=== PATIENT | male | born 1950 | race Caucasian/White ===

== ENCOUNTER → 2019-02-11 12:32 | Outpatient (CLI) | payer MEDICARE, SELFPAY ==
--- NOTE | 2019-02-11 12:36 | MRI_ITS ---
STUDY: MRI BRAIN WITHOUT CONTRAST REASON FOR EXAM: Male, 68 years old. Diplopia for 3 hours 3 weeks ago TECHNIQUE: Standardized multiplanar fat and water weighted pulse sequences were obtained. COMPARISON: None. FINDINGS: Normal size of the ventricles and extra-axial spaces for the patient's age. There are a limited number of small white matter hyperintensities, distributed throughout the deep white matter tracts of the cerebral hemispheres, consistent with mild chronic white matter ischemic changes. Normal bilateral basal ganglia. Normal thalami. There is no extra-axial fluid accumulation. Normal flow voids within the major intracranial circulation suggesting patency by spin echo criteria. Normal sella turcica, pituitary gland, infundibular stalk, optic chiasm and hypothalamus. Normal tectal plate and pineal gland. Normal midbrain, rachel and medulla. Normal cerebellum. Normal basal cisterns. Normal bilateral temporal bones. Normal bilateral internal auditory canals. No demonstrated orbital abnormality, within the constraints of a routine brain study. Normal visualized paranasal sinuses. Normal calvarium and skull base. Normal visualized soft tissue structures. Normal visualized upper cervical spine. MRI/Brain without Contrast IMPRESSION: No evidence of infarct or hemorrhage. Mild microangiopathic white matter disease. Electronically Signed: Colt Hardwick MD at 18:32 EDT Tel , Service support ,
== END ==
PROVIDERS: Family Provider Internal Medicine; PCP Internal Medicine; Referring Provider Internal Medicine; Visit Provider Internal Medicine
DX: H53.2 Diplopia (principal)
CPT/HCPCS: 70551

== ENCOUNTER 2019-04-21 14:00 | Outpatient (RCR) | payer MEDICARE, SELFPAY ==
[2016-09-06 07:12] VITALS: BMI 26.9
== END 2019-05-10 23:59 ==
LOC: DC 14:00
PROVIDERS: Family Provider Internal Medicine; PCP Internal Medicine; Visit Provider Nurse Practitioner
DX: E11.65 Type 2 diabetes mellitus with hyperglycemia (principal); Z71.3 Dietary counseling and surveillance
CPT/HCPCS: 97803; G0108

== ENCOUNTER 2019-05-21 14:00 | Outpatient (RCR) | payer MEDICARE, SELFPAY ==
[2016-09-06 07:12] VITALS: BMI 26.9
== END 2019-06-10 23:59 ==
LOC: DC 14:00
PROVIDERS: Family Provider Internal Medicine; PCP Internal Medicine; Visit Provider Nurse Practitioner
DX: E11.65 Type 2 diabetes mellitus with hyperglycemia (principal); Z71.3 Dietary counseling and surveillance
CPT/HCPCS: 97803; G0108

== ENCOUNTER 2019-06-11 13:23 | Outpatient (RCR) | payer MEDICARE, SELFPAY ==
[2016-09-06 07:12] VITALS: BMI 26.9
== END 2019-07-11 23:59 ==
LOC: DC 13:23
PROVIDERS: Family Provider Internal Medicine; PCP Internal Medicine; Visit Provider Nurse Practitioner
DX: E11.65 Type 2 diabetes mellitus with hyperglycemia (principal); Z71.3 Dietary counseling and surveillance
CPT/HCPCS: G0109

== ENCOUNTER 2019-07-20 14:05 | Outpatient (RCR) | payer MEDICARE, SELFPAY ==
[2016-09-06 07:12] VITALS: BMI 26.9
== END 2019-07-20 23:59 | disposition home or self-care (01) ==
LOC: DC 14:05
PROVIDERS: Family Provider Internal Medicine; PCP Internal Medicine; Visit Provider Nurse Practitioner
DX: E11.65 Type 2 diabetes mellitus with hyperglycemia (principal); Z71.3 Dietary counseling and surveillance
CPT/HCPCS: 97803

== ENCOUNTER → 2020-03-09 12:39 | Outpatient (CLI) | payer MEDICARE, SELFPAY ==
--- NOTE | 2020-03-09 12:43 | CDU_ITS ---
Reason For Study: Left carotid bruit Rt. Velocities/BP Lt. Velocities/BP Prox CCA 132.1/18.8 cm/sec. Prox CCA 132.1/24.3 cm/sec. Mid CCA 115.6/17 cm/sec. Mid CCA 121.1/22.5 cm/sec. Dist CCA 88.8/16.3 cm/sec. Dist CCA 110.9/22.5 cm/sec. Prox ICA 56.4/13.5 cm/sec. Prox ICA 66.7/17.6 cm/sec. Mid ICA 70.7/22.3 cm/sec. Mid ICA 81.4/22.5 cm/sec. Dist ICA 92.7/31.1 cm/sec. Dist ICA 67.9/21.2 cm/sec. Rt. ICA/CCA = 0.8. Lt. ICA/CCA = 0.7. Prox ECA 94.9/12.6 cm/sec. Prox ECA 129.3/17.6 cm/sec. Rt. Vert. 57.9/15.4 cm/sec. Lt. Vert. 44.8/10.7 cm/sec. Right Extracranial There is homogeneous, smooth atherosclerotic plaque noted in the right common carotid artery. There is intimal thickening but no significant atherosclerotic plaque noted in the right internal carotid artery. There is no significant atherosclerotic plaque noted in the right external carotid artery. Antegrade flow is noted in the right vertebral artery. Left Extracranial There is homogeneous, smooth atherosclerotic plaque noted in the left common carotid artery. There is homogeneous, smooth atherosclerotic plaque noted in the left internal carotid artery. There is no significant atherosclerotic plaque noted in the left external carotid artery. Antegrade flow is noted in the left vertebral artery. Procedure Carotid Duplex [id number]. Exam performed in department. Interpretation Summary No significant atherosclerotic plaque or stenosis noted in the right internal carotid artery. Minimal stenosis is noted in the left internal carotid artery, well less than 50% stenosis. Flow within the vertebral arteries is antegrade bilaterally. Ordering Physician: Natividad Man Referring Physician: Natividad Man Performed By: Radhika Phillips RVT
== END ==
PROVIDERS: PCP Internal Medicine; Referring Provider Internal Medicine; Visit Provider Internal Medicine
DX: R09.89 Other specified symptoms and signs involving the circulatory and respiratory systems (principal)
CPT/HCPCS: 93880

== ENCOUNTER → 2021-10-09 13:48 | Outpatient (CLI) | payer MEDICARE, SELFPAY ==
--- NOTE | 2021-10-09 13:51 | CDU_ITS ---
Reason For Study: Left Carotid Bruit Rt. Velocities/BP Lt. Velocities/BP Prox CCA 123/17 cm/sec. Prox CCA 131/23 cm/sec. Mid CCA 124/20 cm/sec. Mid CCA 124/19 cm/sec. Dist CCA 86/17 cm/sec. Dist CCA 122/29 cm/sec. Prox ICA 90/14 cm/sec. Prox ICA 111/25 cm/sec. Mid ICA 79/17 cm/sec. Mid ICA 100/25 cm/sec. Dist ICA 73/20 cm/sec. Dist ICA 82/25 cm/sec. Rt. ICA/CCA = 0.7. Lt. ICA/CCA = 0.9. Prox ECA 121/14 cm/sec. Prox ECA 124/7 cm/sec. Rt. Vert. 72/15 cm/sec. Lt. Vert. 49/9 cm/sec. Right Extracranial There is intimal thickening but no significant atherosclerotic plaque noted in the right common carotid artery. There is no significant atherosclerotic plaque noted in the right internal carotid artery. There is no significant atherosclerotic plaque noted in the right external carotid artery. Antegrade flow is noted in the right vertebral artery. Left Extracranial There is intimal thickening but no significant atherosclerotic plaque noted in the left common carotid artery. There is homogeneous, smooth atherosclerotic plaque noted in the left internal carotid artery. There is intimal thickening but no significant atherosclerotic plaque noted in the left external carotid artery. Antegrade flow is noted in the left vertebral artery. Procedure Carotid Duplex [id number]. This is a Carotid Duplex examination using B-mode, color flow and specral Doppler. Exam performed in department. VL/Carotid Duplex Ultrasound Interpretation Summary No significant atherosclerotic plaque or stenosis noted in the right internal c arotid artery. Mild (<50%) stenosis left extracranial internal carotid. Flow within the vertebral a rteries is antegrade bilaterally. Ordering Physician: Natividad Man Referring Physician: Natividad Man Performed By: Lisa Gomez, YELITZA, RVT
== END ==
PROVIDERS: PCP Internal Medicine; Referring Provider Internal Medicine; Visit Provider Internal Medicine
DX: R09.89 Other specified symptoms and signs involving the circulatory and respiratory systems (principal)
CPT/HCPCS: 93880

== ENCOUNTER 2022-01-26 13:59 | Outpatient (RCR) | payer MEDICARE, SELFPAY ==
--- NOTE | 2022-01-26 15:37 | HP.PTEVAL_ITS ---
Patient's Visit Information NADIA SALAZAR is a 71 year old M referred to Physical Therapy by Jace Emanuel PA-C with a diagnosis of L shoulder contusion. Date of Evaluation: 01/26/22 Physical Therapist: Jesus Izaguirre, PT, ATC - Visit Plan Frequency: 1x/Week Duration: 2 Weeks Plan: Issued and instructed pt on HEP of rot cuff and scap stab exs - Subjective Pt reports he fell on ice approximately 3 weeks ago and landed on his L shoulder. Pt reports he has had x-rays taken which revealed no fractures. Pt reports his L shoulder ROM and pain have been improving, but notes he is still limited with a few activities like donning his winter coat. Pt reports he has been using ibuprophen to control his pain. Pt notes he had a steroid injection which really helped for about one week, but then the pain started to come back. Pt is R hand dominant. No tingling or numbness at this time. Pt reports occasional sleep difficulty without the use of pain meds. Pt is retired at this time. No PMHx of L shoulder pain. 0/10 pain at rest, 6/10 pain at worst - Pain L shoulder Pain Intensity (Out of 10): 0 Pain Intensity Range: 6 - Objective Neuro: B UE sensation is WNL to light touch. B bicepital reflex= 2/3. Palpation: No specific pain with palpation. No obvious deformity at this time. ROM: B shoulders are WFL. MMT: L shoulder ER 3-/5. All other L shoulder measurements 4-/5 and painful. R UE 5/5 throughout. Special tests: pos empty can - Balance/Special Test Scores Quick DASH Score: 18.1800 - Goals Goal 1:: I with HEP in 1-2 visits Goal Time Frame: 1 Week - Rehabilitation Potential Physical Therapy Diagnosis: Pt has L shoulder pain and weakness secondary to L rotator cuff insufficiency Rehabilitation Potential: Good - Anticipated Interventions Patient/Client Instruction: Educate patient on: Condition, Plan of Care For the Purpose of:: To improve self management Therapeutic Exercise to Include: Strength training, Active ROM, Scapular Strength/Stabilization For the Purpose of:: To decrease pain, To improve muscle performance and motor function Cryotherapy (ice pack, ice massage): Yes For the Purpose of:: To decrease pain Thank you for the opportunity to evaluate your patient. For Medicare and Medicare HMO plans, please review the plan of care and approve it. It will need to be FAXED BACK to us at [phone] for Medicare purposes. For Medicare only, by signing this I certify the plan of care. Please let me know if there are questions or concerns regarding this plan of care. Physician Signature: Date:
--- NOTE | 2022-04-24 13:59 | HP.PT.NRP ---
NADIA SALAZAR was seen in my office for initial evaluation on 01/26/22. The following Plan of Care was established for this patient: Initial Frequency: 1x/Week Initial Duration: 2 Weeks Patient/Client Instruction: Educate patient on: Condition, Plan of Care For the Purpose of:: To improve self management Therapeutic Exercise to Include: Strength training, Active ROM, Scapular Strength/Stabilization For the Purpose of:: To decrease pain, To improve muscle performance and motor function Cryotherapy (ice pack, ice massage): Yes For the Purpose of:: To decrease pain This patient was last seen in our office . Pertinent comments regarding their Physical therapy will appear below: Pt was treated for 1 PT visit for R shoulder pain through the date of 01/26/22. Pt has not returned through todays date and will be discontinued at this time. At this point I will be discontinuing this patient from physical therapy. I would be happy to see this patient again in the future if found appropriate by the physician. Thank you! Jesus Izaguirre, PT, ATC Balance/Gait/Functional tests - Balance/Special Test Scores Quick DASH Score: 18.1800
== END 2022-01-26 19:00 | disposition home or self-care (01) ==
LOC: PT 13:59
PROVIDERS: PCP Internal Medicine; Referring Provider Physician Assistant; Visit Provider Physician Assistant
DX: S40.012D Contusion of left shoulder, subsequent encounter (principal)
CPT/HCPCS: 97110; 97161

== ENCOUNTER → 2022-04-16 | Outpatient (CLI) | payer MEDICARE, SELFPAY ==
[2022-04-16 08:30] LABS: Bacteria 0 SEEN /hpf (None Seen); Mucous, Urine 0 SEEN /hpf (<or=2+); Red Blood Cells-Urine 0 SEEN /hpf (0-5); Squamous Epithelial Cells - UA 0 SEEN /hpf (0-5); White Blood Cells 0 SEEN /hpf (0-5)
[2022-04-16 09:04] LABS: Absolute Lymphocyte Count 1.71 X10^3/uL (0.83-4.51); Absolute Neutrophil Count 2.9 X10^3/uL (2.0-7.7); Basophil# 0.04 X10^3/uL; Basophil% 0.8 % (0-1); Eosinophil# 0.12 X10^3/uL; Eosinophils% 2.3 % (0-5); Hematocrit 39.4 % (40-54); Lymphocyte # 1.71 X10^3/ul (0.83-4.51); Lymphocyte % 32.8 % (19-41); Mean Corpuscular Hgb 30.4 pg (27.0-32.0); Mean Corpuscular Volume 92.3 fL (80-94); Monocyte# 0.48 X10^3/uL; Monocyte% 9.2 % (0-10); NRBC Flagged by Analyzer 0 % (0-5); Neutrophil # 2.86 X10^3/uL (2.7-7.7); Neutrophil % 54.7 % (47-70); Platelet Count 285 K/mm3 (150-450); RBC Distribution Width CV 13.4 % (11.6-14.6); RBC Distribution Width SD 45.4 fl (35.1-43.9); Red Blood Count 4.27 M/mm3 (4.6-6.2); White Blood Count 5.2 K/mm3 (4.4-11.0)
[2022-04-16 09:07] LABS: Color, Urine Yellow (Yellow); Glucose, Dipstick 100 mg/dl (Normal); Ketone-Dipstick Negative (Negative); Leukocyte Esterase-Dipstick Negative /ul (Negative); Nitrite-Dipstick Negative (Negative); Occult Blood-Urine Negative /ul (Negative); Protein-Dipstick Negative (Negative); Specific Gravity, Urine 1.015 (1.002-1.030); Urine Bilirubin Dipstick Negative (Negative); Urine Clarity Clear (Clear); Urine Urobilinogen Normal (Normal)
[2022-04-16 09:26] LABS: Microalbumin,Random Urine 7.7 mg/L (NO RANGE EST.); Microalbumin:Creatinine Ratio 13.9 mg/g CRE (<30 mg/g CRE)
[2022-04-16 09:38] LABS: ALB/GLOB Ratio 1.2 RATIO (0.9-2.4); AST(SGOT) 9 U/L (15-37); Alanine Aminotransfer ALT/SGPT 26 U/L (16-61); Albumin, Serum 3.7 g/dL (3.2-5.0); Alkaline Phosphatase 37 U/L (45-117); Anion Gap 4 (5-15); BUN 17 mg/dL (7-18); BUN/Creat Ratio 20.6 RATIO (10-20); Calcium,Total 8.6 mg/dL (8.5-10.1); Chloride 106 mmol/L (98-107); Cholesterol 119 mg/dL (200); Creatinine, Serum 0.82 mg/dL (0.70-1.30); EST Glomerular Filtration Rate 98 mL/min (>60); Est Glom Filt Rate - Afr Amer 119 mL/min (>60); Glucose 132 mg/dL (74-106); High Density Lipoprotein 35 mg/dL; Potassium 4.4 mmol/L (3.5-5.1); Protein, Total 6.7 g/dL (6.4-8.2); Sodium Level 137 mmol/L (136-145); Thyroid Stim Hormone (TSH) 2.13 uIU/mL (0.358-3.74); Triglycerides 63 mg/dL; Very Low Density Lipoprotein 13 mg/dL (5-40)
== END | disposition home or self-care (01) ==
LOC: LAB 08:22
PROVIDERS: PCP Internal Medicine; Referring Provider Internal Medicine; Visit Provider Internal Medicine
DX: E11.65 Type 2 diabetes mellitus with hyperglycemia (principal)
CPT/HCPCS: 36415; 80053; 80061; 81001; 82043; 82570; 84443; 85025

== ENCOUNTER → 2022-05-16 | Outpatient (CLI) | payer MEDICARE, SELFPAY ==
--- NOTE | 2022-05-16 10:44 | ECHOD_ITS ---
Reason For Study: Murmur Procedure This was a 2D Doppler, Color Flow transthoracic echocardiogram. The study was technically difficult. Exam performed in department. Left Ventricle Normal LV size. Left ventricular systolic function is normal. The estimated ejection fraction is 65 %. Diastolic function is indeterminate. No regional wall motion abnormalities noted. Right Ventricle Normal RV size. Normal systolic function. Atria Normal left atrium. Normal right atrium. No doppler evidence for ASD. Mitral Valve There is no mitral annular calcification. Normal mitral valve. Trivial mitral valve insufficiency. Tricuspid Valve Normal tricuspid valve. Trivial tricuspid valve insufficiency. Unable to estimate RV systolic pressure due to insufficient tricuspid regurgitant envelope. Aortic Valve Trisinus/trileaflet aortic valve. Moderate focal aortic valve calcification. Aortic sclerosis, no stenosis. Pulmonic Valve The pulmonic valve is not well visualized. Great Vessels Normal sized aortic root. Calcified aortic root. Pericardium/Pleural No pericardial effusion. MMode/2D Measurements & Calculations LVIDd: 4.4 cm IVSd: 0.90 cm LVOT diam: 2.0 cm LVIDs: 2.1 cm LVPWd: 0.85 cm LVOT area: 3.0 cm2 RVDd: 3.0 cm FS: 52.9 % Ao root diam: 3.1 cm LAV(MOD-bp): 32.1 ml LVAd ap4: 23.4 cm2 LAV(MOD-bp) Indexed: 16.7 ml/m2 LVLd ap4: 7.7 cm LAV(MOD-sp2): 37.6 ml EDV(MOD-sp4): 57.6 ml LAV(MOD-sp4): 23.4 ml EDV(sp4-el): 60.1 ml LVAs ap4: 11.1 cm2 LVLs ap4: 6.2 cm ESV(MOD-sp4): 17.6 ml ESV(sp4-el): 17.0 ml EF(MOD-sp4): 69.5 % EF(sp4-el): 71.8 % SV(MOD-sp4): 40.0 ml SV(sp4-el): 43.1 ml LA A4 area: 10.4 cm2 LA dimension(2D): 3.2 cm RA A4 area: 11.0 cm2 Doppler Measurements & Calculations MV E max adelso: 74.7 cm/sec Lat Peak E' Adelso: 6.6 cm/sec Med Peak E' Adelso: 5.1 cm/sec MV A max adelso: 129.1 cm/sec E/E' lat: 11.4 E/E' med: 14.7 MV E/A: 0.58 Ao V2 max: 157.0 cm/sec LV V1 max: 136.1 cm/sec PA V2 max: 97.7 cm/sec Ao max P.9 mmHg LV V1 max P.4 mmHg Ao V2 mean: 103.6 cm/sec Ao mean P.9 mmHg Ao V2 VTI: 26.3 cm JOHN(V,D): 2.6 cm2 ECHO/Echo Complete Interpretation Summary The study was technically difficult. Left ventricular systolic function is normal. The estimated ejection fraction is 65 %. Trivial mitral valve insufficiency. Trivial tricuspid valve insufficiency. Aortic sclerosis, no stenosis. Calcified aortic root. Unable to estimate RV systolic pressure due to insufficient tricuspid regurgita nt envelope. Diastolic function is indeterminate. Ordering Physician: Natividad Man Referring Physician: Natividad Man Performed By: Lisa Gomez, YELITZA, RVT
== END | disposition home or self-care (01) ==
LOC: CVS 10:44
PROVIDERS: PCP Internal Medicine; Referring Provider Internal Medicine; Visit Provider Internal Medicine
DX: R01.1 Cardiac murmur, unspecified (principal)
CPT/HCPCS: 93306

== ENCOUNTER → 2023-01-11 | Outpatient (CLI) | payer MEDICARE, SELFPAY ==
[2023-01-11 13:43] LABS: Absolute Lymphocyte Count 1.94 X10^3/uL (0.83-4.51); Absolute Neutrophil Count 3.2 X10^3/uL (2.0-7.7); Basophil# 0.04 X10^3/uL; Basophil% 0.7 % (0-1); Eosinophil# 0.12 X10^3/uL; Eosinophils% 2.1 % (0-5); Hemoglobin 14.4 g/dL (13.0-16.5); Lymphocyte # 1.94 X10^3/ul (0.83-4.51); Lymphocyte % 33.9 % (19-41); Mean Corp Hgb Conc 32.7 g/dL (32-36); Mean Corpuscular Hgb 29.6 pg (27.0-32.0); Mean Corpuscular Volume 90.5 fL (80-94); Mean Platelet Vol. 10.2 fl (6.2-12.0); Monocyte# 0.43 X10^3/uL; Monocyte% 7.5 % (0-10); NRBC Flagged by Analyzer 0 % (0-5); Neutrophil # 3.19 X10^3/uL (2.7-7.7); Neutrophil % 55.6 % (47-70); Platelet Count 317 K/mm3 (150-450); RBC Distribution Width SD 42.5 fl (35.1-43.9); Red Blood Count 4.86 M/mm3 (4.6-6.2); White Blood Count 5.7 K/mm3 (4.4-11.0)
[2023-01-11 13:57] LABS: ALB/GLOB Ratio 1.2 RATIO (0.9-2.4); AST(SGOT) 12 U/L (15-37); Alanine Aminotransfer ALT/SGPT 26 U/L (16-61); Albumin, Serum 4.2 g/dL (3.2-5.0); Alkaline Phosphatase 44 U/L (45-117); Anion Gap 9 (5-15); BUN 21 mg/dL (7-18); BUN/Creat Ratio 26.2 RATIO (10-20); CPK Total, Creatine Kinase 62 U/L (39-308); Calcium,Total 9.8 mg/dL (8.5-10.1); Chloride 99 mmol/L (98-107); EST Glomerular Filtration Rate 101 mL/min (>60); Est Glom Filt Rate - Afr Amer 122 mL/min (>60); Globulin 3.4 g/dL (2.2-4.2); Glucose 90 mg/dL (74-106); Potassium 4.2 mmol/L (3.5-5.1); Protein, Total 7.6 g/dL (6.4-8.2); Sodium Level 137 mmol/L (136-145); Troponin-I HS 4 pg/mL (3.0-78.0)
== END | disposition home or self-care (01) ==
LOC: LABSPEC 13:32
PROVIDERS: PCP Internal Medicine; Referring Provider Internal Medicine; Visit Provider Internal Medicine
DX: R07.89 Other chest pain (principal)
CPT/HCPCS: 80053; 82550; 84484; 85025

== ENCOUNTER → 2023-02-08 | Outpatient (CLI) | payer MEDICARE, SELFPAY | END | disposition home or self-care (01) | PROVIDERS: PCP Internal Medicine; Visit Provider Nurse Practitioner Acute Care | DX: G47.30 Sleep apnea, unspecified (principal) | CPT/HCPCS: 95811 ==

== ENCOUNTER → 2023-04-09 | Outpatient (CLI) | payer MEDICARE, SELFPAY | END | disposition home or self-care (01) | LOC: SL 11:57 | PROVIDERS: PCP Internal Medicine; Visit Provider Nurse Practitioner Acute Care | DX: G47.30 Sleep apnea, unspecified (principal) | CPT/HCPCS: 98960; G0463 ==

== ENCOUNTER → 2023-12-10 | Outpatient (CLI) | payer MEDICARE, SELFPAY ==
--- NOTE | 2023-12-10 11:00 | CDU_ITS ---
Reason For Study: Lt Carotid Bruit Rt. Velocities/BP Lt. Velocities/BP Prox CCA 105.2/15.7 cm/sec. Prox CCA 121.1/27.9 cm/sec. Mid CCA 96.3/17.1 cm/sec. Mid CCA 112.5/24.1 cm/sec. Dist CCA 86.4/22.6 cm/sec. Dist CCA 94.1/22.6 cm/sec. Prox ICA 77.6/18.2 cm/sec. Prox ICA 56.1/18.8 cm/sec. Mid ICA 56.7/18.2 cm/sec. Mid ICA 90.6/30.3 cm/sec. Dist ICA 74.3/27.0 cm/sec. Dist ICA 92.4/30.3 cm/sec. Rt. ICA/CCA = 0.8. Lt. ICA/CCA = 0.8. Prox ECA 64.4/6.2 cm/sec. Prox ECA 101.4/14.2 cm/sec. Rt. Vert. 44.6/10.4 cm/sec. Lt. Vert. 26.5/8.4 cm/sec. Right Extracranial There is homogeneous, smooth atherosclerotic plaque noted in the right common carotid artery. There is homogeneous, smooth atherosclerotic plaque noted in the right internal carotid artery. There is intimal thickening but no significant atherosclerotic plaque noted in the right external carotid artery. Antegrade flow is noted in the right vertebral artery. Left Extracranial There is homogeneous, smooth atherosclerotic plaque noted in the left common carotid artery. There is heterogeneous, irregular atherosclerotic plaque noted in the left internal carotid artery. There is intimal thickening but no significant atherosclerotic plaque noted in the left external carotid artery. Antegrade flow is noted in the left vertebral artery. Procedure Carotid Duplex [id number]. This is a Carotid Duplex examination using B-mode, color flow and specral Doppler. The exam was diagnostic. Exam performed in department. VL/Carotid Duplex Ultrasound Interpretation Summary Mild (<50%) stenosis right extracranial internal carotid. Mild (<50%) stenosis left extracranial internal carotid. Patent and antegrade vertebrals bilaterally. Ordering Physician: Natividad Man Referring Physician: Natividad Man Performed By: Chepe Love RVT
== END | disposition home or self-care (01) ==
LOC: CVS 10:52
PROVIDERS: PCP Internal Medicine; Referring Provider Internal Medicine; Visit Provider Internal Medicine
DX: R09.89 Other specified symptoms and signs involving the circulatory and respiratory systems (principal)
CPT/HCPCS: 93880

== ENCOUNTER → 2024-02-03 | Outpatient (CLI) | payer MEDICARE, SELFPAY ==
--- NOTE | 2024-02-03 11:44 | RAD_ITS ---
STUDY: X-RAY CHEST REASON FOR EXAM: Male, 73 years old. COUGH TECHNIQUE: PA and lateral views of the chest. COMPARISON: None. FINDINGS: The lungs are clear and expanded. There is no demonstrated pleural abnormality. Normal size heart. Normal mediastinum and rae. Normal visualized pulmonary arteries. Normal visualized aortic arch and descending thoracic aorta. Normal visualized thoracic spine. Normal visualized ribs, clavicles, and shoulders. There is no demonstrated abnormality of the visualized soft tissue structures of the upper abdomen. RAD/Chest PA and Lateral IMPRESSION: Normal x-ray examination of the chest. Electronically Signed: Fernandez Roberto MD at 23:18 EDT ,
== END | disposition home or self-care (01) ==
LOC: MTRAD 11:43
PROVIDERS: PCP Internal Medicine; Referring Provider Internal Medicine; Visit Provider Internal Medicine
DX: R05.9 Cough, unspecified (principal)
CPT/HCPCS: 71046

== ENCOUNTER 2024-03-19 13:39 | Outpatient (RCR) | payer MEDICARE, SELFPAY ==
--- NOTE | 2024-03-19 16:03 | HP.PTEVAL ---
Patient's Visit Information Visit Information Visit Information: NADIA SLAAZAR is a 73 year old M referred to Physical Therapy by Dr. Malachi Swanson DO with a diagnosis of UNILATERAL PRIMARY OSTEOATHRITIS ,RIGHT KNEE. Date of Evaluation: 03/19/24 Physical Therapist: All Nam, PT, Cert MDT, OCS Visit Plan Frequency: 2x /Week Duration: 4 Weeks Plan: PRECAUTION: LATEX ALLERGEY PT INTERVENTIONS ROM/FLEXIBILITY KNEE ,STRENGTHENING QUADS/HAMS/HIP ,FUNCTIONAL STRENGTHENING AND PROGRESS TO GYM PROGRAM Subjective Subjective: This 73 y/o male presents to physical therapy with right knee OA pain. Patient has had knee pain Fe2023. Patient seen DR recommended PT and medication and x-rays showed DJD. Prescribed Meloxicam Patient wants gel injection. Patient knee pain is global knee . Aggravating factors walking ,standing doing outside work ,squat and kneeling. Alleviating factors rest. Inactivity makes symptoms worse like in morning . Patient sleeping good at night. Patient dull pain. Patient denies paresthesia/tingling . Patient doing one step at a side with cane to talk pressure off knee. Patient condition affects QOL and function ..yard work tasks. Patient goals to decrease pain. VOCATION: retired SOCIAL: Pain Right Knee: Pain Intensity (Out of 10): 4 Pain Intensity Range: 10 Objective Objective: POSTURE: mild forward posture ,hips/knees slightly flexed PALPATION: mild tender medial/lateral joint line EDEMA: absent AROM: 0-120 supine knee flexion right knee GAIT: mild antalgic gait right side with decrease stance time FLEXABILITY: hamstrings min tight MMT: quads/hams 4/5 , (peak force) right hip flexion 29.1 , hip abductors 23.7 STAIRS: one step at areli iw rail Special Tests R Knee Valgus - MCL: Negative R Knee Varus - LCL: Negative R Knee Patellar Apprehension - PFS: Negative R Knee Patellar Grind - PFS: Negative Balance/Special Test Scores Lower Extremity Functional Score: 39 Goals Goal 1:: Patient to be I with HEP and gym program Goal Time Frame: 4-6 Weeks Goal 2:: Patient to demonstrate 50% improvement of function with walking/standing to improve housework/yard work Goal Time Frame: 4-6 Weeks Goal 3:: Patient to improve LFES score by 5 points to improve QOL and function. Goal Time Frame: 4-6 Weeks Goal 4:: Patient to improve AROM knee by 5 degrees> to improve stairs Goal Time Frame: 4-6 Weeks Goal 5:: Patient to improve peak force of hips by 5-10# to improve yard and housework Goal Time Frame: 4-6 Weeks Rehabilitation Potential Physical Therapy Diagnosis: Patient has right knee pain with DJD with pain ,decrease ROM ,weakness decrease gait and ADLS with yardwork tasks thus benefit from skilled PT Rehabilitation Potential: Good Anticipated Interventions Patient/Client Instruction: Educate patient on: Condition and Plan of Care For the Purpose of:: To decrease pain, To increase ROM, To improve muscle performance and motor function, To improve ability to perform ADL's, To increase tolerance to activity/condition/position, To improve ability of physical actions for home/community/work/leisure, To improve health of tissue, To decrease soft tissue restriction, To increase flexibility/ROM, To prevent re-injury and To improve tolerance to ADL's Therapeutic Exercise to Include: Strength training, Endurance training, Balance training, Flexibilty training and Active ROM Comment: HIP/QUADS/HAMS For the Purpose of:: To decrease pain, To increase ROM, To improve muscle performance and motor function, To improve ability to perform ADL's, To increase tolerance to activity/condition/position, To improve ability of physical actions for home/community/work/leisure, To improve health of tissue, To decrease soft tissue restriction, To increase flexibility/ROM, To improve endurance and To improve tolerance to ADL's Text: Thank you for the opportunity to evaluate your patient. For Medicare and Medicare HMO plans, please review the plan of care and approve it. It will need to be FAXED BACK to us at [phone] for Medicare purposes. For Medicare only, by signing this I certify the plan of care. Please let me know if there are questions or concerns regarding this plan of care. Physician Signature: Date:
--- NOTE | 2024-06-12 09:45 | HP.PT.NRP ---
Patient Information Patient Information: NADIA SALAZAR was seen in my office for initial evaluation on 03/19/24. The following Plan of Care was established for this patient: POC Established Initial Frequency: 2x /Week Initial Duration: 4 Weeks Anticipated Interventions Patient/Client Instruction: Educate patient on: Condition and Plan of Care For the Purpose of:: To decrease pain, To increase ROM, To improve muscle performance and motor function, To improve ability to perform ADL's, To increase tolerance to activity/condition/position, To improve ability of physical actions for home/community/work/leisure, To improve health of tissue, To decrease soft tissue restriction, To increase flexibility/ROM, To prevent re-injury and To improve tolerance to ADL's Therapeutic Exercise to Include: Strength training, Endurance training, Balance training, Flexibilty training and Active ROM For the Purpose of:: To decrease pain, To increase ROM, To improve muscle performance and motor function, To improve ability to perform ADL's, To increase tolerance to activity/condition/position, To improve ability of physical actions for home/community/work/leisure, To improve health of tissue, To decrease soft tissue restriction, To increase flexibility/ROM, To improve endurance and To improve tolerance to ADL's Last Seen Last Seen: This patient was last seen in our office . Pertinent comments regarding their Physical therapy will appear below: Patient was seen for PT for HEP for OA knee and progress to gym program At this point I will be discontinuing this patient from physical therapy. I would be happy to see this patient again in the future if found appropriate by the physician. Thank you! All Nam, PT, Cert MDT, OCS Balance/Gait/Functional tests Balance/Special Test Scores Lower Extremity Functional Score: 39
== END 2024-03-19 19:00 | disposition home or self-care (01) ==
LOC: PT 13:39
PROVIDERS: PCP Internal Medicine; Referring Provider Orthopaedic Surgery; Visit Provider Orthopaedic Surgery
DX: M17.11 Unilateral primary osteoarthritis, right knee (principal)
CPT/HCPCS: 97162

== ENCOUNTER → 2024-12-16 | Outpatient (CLI) | payer MEDICARE, SELFPAY ==
[2024-12-16 16:34] LABS: Absolute Lymphocyte Count 2.67 X10^3/uL (0.83-4.51); Absolute Neutrophil Count 4.1 X10^3/uL (2.0-7.7); Basophil# 0.05 X10^3/uL; Basophil% 0.7 % (0-1); Eosinophil# 0.16 X10^3/uL; Eosinophils% 2.1 % (0-5); Hematocrit 42.8 % (40-54); Hemoglobin 14.1 g/dL (13.0-16.5); Lymphocyte # 2.67 X10^3/ul (0.83-4.51); Lymphocyte % 35.5 % (19-41); Mean Corp Hgb Conc 32.9 g/dL (32-36); Mean Corpuscular Hgb 29.8 pg (27.0-32.0); Mean Corpuscular Volume 90.5 fL (80-94); Mean Platelet Vol. 9.8 fl (6.2-12.0); Monocyte# 0.54 X10^3/uL; Monocyte% 7.2 % (0-10); NRBC Flagged by Analyzer 0 % (0-5); Neutrophil # 4.09 X10^3/uL (2.7-7.7); Neutrophil % 54.2 % (47-70); Platelet Count 297 K/mm3 (150-450); RBC Distribution Width CV 12.9 % (11.6-14.6); RBC Distribution Width SD 42.8 fl (35.1-43.9); Red Blood Count 4.73 M/mm3 (4.6-6.2); White Blood Count 7.5 K/mm3 (4.4-11.0)
[2024-12-16 17:05] LABS: ALB/GLOB Ratio 1.1 RATIO (0.9-2.4); AST(SGOT) 10 U/L (15-37); Alanine Aminotransfer ALT/SGPT 21 U/L (16-61); Albumin, Serum 3.8 g/dL (3.2-5.0); Alkaline Phosphatase 49 U/L (45-117); Anion Gap 6 (5-15); BUN 22 mg/dL (7-18); BUN/Creat Ratio 24.4 RATIO (10-20); Chloride 105 mmol/L (98-107); EST Glomerular Filtration Rate 88 mL/min (>60); Est Glom Filt Rate - Afr Amer 106 mL/min (>60); Globulin 3.5 g/dL (2.2-4.2); Glucose 73 mg/dL (74-106); Potassium 4.2 mmol/L (3.5-5.1); Protein, Total 7.3 g/dL (6.4-8.2); Sodium Level 138 mmol/L (136-145); Troponin-I HS 4 pg/mL (3.0-78.0)
== END | disposition home or self-care (01) ==
LOC: LAB 15:41
PROVIDERS: PCP Internal Medicine; Referring Provider Internal Medicine; Visit Provider Internal Medicine
DX: R07.9 Chest pain, unspecified (principal)
CPT/HCPCS: 36415; 80053; 84484; 85025

== ENCOUNTER → 2024-12-17 | Outpatient (CLI) | payer MEDICARE, SELFPAY | END | disposition home or self-care (01) | LOC: SL 12:17 | PROVIDERS: PCP Internal Medicine; Referring Provider Nurse Practitioner Family; Visit Provider Nurse Practitioner Family | DX: Z46.89 Encounter for fitting and adjustment of other specified devices (principal); G47.33 Obstructive sleep apnea (adult) (pediatric) | CPT/HCPCS: 98960; G0463 ==

== ENCOUNTER → 2025-01-05 | Outpatient (CLI) | payer MEDICARE, SELFPAY ==
--- NOTE | 2025-01-05 06:40 | ECHOD_ITS ---
Reason For Study Reason For Study: CHEST PAIN Procedure This was a 2D Doppler, Color Flow transthoracic echocardiogram. The study was technically difficult. Exam performed in department. Left Ventricle Normal LV size. The estimated ejection fraction is 65 %. No evidence for diastolic dysfunction. No regional wall motion abnormalities noted. Right Ventricle Normal RV size. Normal systolic function. Atria The left and right atria are normal. No doppler evidence for ASD. Mitral Valve There is no mitral valve stenosis. No mitral valve insufficiency. Tricuspid Valve There is no tricuspid stenosis. Unable to estimate RV systolic pressure due to inadequate jet, pulmonary artery pressure probably normal. Aortic Valve Trisinus/trileaflet aortic valve. Aortic sclerosis, no stenosis. There is no aortic stenosis. No aortic valve insufficiency. Pulmonic Valve There is no pulmonic valvular stenosis. No pulmonic valve insufficiency. Great Vessels Normal sized aortic root. Pericardium/Pleural No pericardial effusion. MMode/2D Measurements & Calculations LVIDd: 4.0 cm IVSd: 0.94 cm Ao root diam: 3.3 cm LVIDs: 2.7 cm LVPWd: 0.99 cm RVDd: 2.9 cm FS: 32.0 % LAV(MOD-bp): 25.6 ml LVAd ap4: 23.4 cm2 SV(MOD-sp4): 32.9 ml LAV(MOD-bp) Indexed: 13.0 ml/m2 LVLd ap4: 8.2 cm SI(MOD-sp4): 16.7 ml/m2 LAV(MOD-sp2): 23.6 ml EDV(MOD-sp4): 53.7 ml LAV(MOD-sp4): 27.1 ml EDV(sp4-el): 56.5 ml LVAs ap4: 12.7 cm2 LVLs ap4: 6.7 cm ESV(MOD-sp4): 20.8 ml ESV(sp4-el): 20.4 ml EF(MOD-sp4): 61.3 % EF(sp4-el): 63.9 % SV(sp4-el): 36.1 ml LA A4 area: 12.7 cm2 LA dimension(2D): 2.9 cm RA A4 area: 10.7 cm2 TAPSE: 2.0 cm Time Measurements MV dec time: 0.31 sec Doppler Measurements & Calculations MV E max adelso: 86.5 cm/sec Lat Peak E' Adelso: 11.0 cm/sec Med Peak E' Adelso: 8.1 cm/sec MV A max adelso: 100.5 cm/sec E/E' lat: 7.9 E/E' med: 10.6 MV E/A: 0.86 Ao V2 max: 180.4 cm/sec LV V1 max: 164.5 cm/sec PA V2 max: 127.5 cm/sec Ao max P.0 mmHg LV V1 max P.8 mmHg TR max adelso: 244.3 cm/sec TR max P.9 mmHg ECHO/Echo Complete Interpretation Summary The estimated ejection fraction is 65 %. No evidence for diastolic dysfunction. Ordering Physician: Natividad Man Referring Physician: Natividad Man Performed By: Kayce Hammer RDCS
--- NOTE | 2025-01-05 16:13 | STRESSREP_ITS ---
Stress Test Report Date: 01/05/2025 Procedure: Exercise tolerance test/imaging study Indications: Chest pain Consent: Per the patient Procedure: The patient exercised on a Bassam protocol for 6 minutes and 41 seconds achieving a peak heart rate of 136 bpm (91% predicted maximal heart rate) with a peak blood pressure 142/72 mmHg and a peak MET capacity of 9 METs. The baseline ECG demonstrated normal sinus rhythm. The peak exercise ECG demonstrated about [address] depressions in the inferior and lateral leads. EKG during recovery revealed return of ST segments to baseline [There were no cardiac dysrhythmias pretest, during exercise, or recovery]. The functional capacity was considered excellent for age. There was [no complaint of chest discomfort during exercise or recovery]. The examination was discontinued secondary to achieving target heart rate. Impression: 1. Technically adequate (percent predicted maximal heart rate greater than 85%) exercise tolerance test 2. Stress test is positive for exercise-induced EKG changes of ischemia 3. The test test is negative for exercise-induced chest pain 4. Functional capacity is excellent for age 5. Nuclear images pending Myocardial perfusion imaging study: Technique: The patient was injected with 11.5 mCi of technetium 99m Cardiolite and subsequently rest SPECT Cardiolite nuclear imaging was obtained in the horizontal long, vertical long, and short axis views. The patient exercised on a Bassam protocol. Please see above for details. The patient was injected with 36 mCi of technetium 99m Cardiolite and subsequently stress SPECT Cardiolite nuclear imaging was obtained in the horizontal long, vertical long, and short axis views. A gated Cardiolite study at peak stress was obtained. Interpretation: Rest and stress SPECT Cardiolite nuclear imaging status post realignment, normalization, and attenuation correction, demonstrates no evidence of sig nificant ischemia or infarction. The gated Cardiolite study demonstrates no significant regional wall motion abnormalities. The reported LVEF is greater than 70%. Impression: 1. There is no evidence of significant ischemia or infarction. Please see the EKG portion of the test for details regarding the EKG portion of the stress test. 2. The gated Cardiolite study reports an LVEF of greater than 70%. This note was generated with [employer] software. It may contain incorrect words, spelling, and punctuation that were not noted in checking the note before signing.
== END | disposition home or self-care (01) ==
PROVIDERS: PCP Internal Medicine; Referring Provider Internal Medicine; Visit Provider Internal Medicine
DX: R07.9 Chest pain, unspecified (principal)
CPT/HCPCS: 78452; 93017; 93306; A9500; A4216

== ENCOUNTER → 2025-02-16 | Outpatient (CLI) | payer MEDICARE, SELFPAY | END | disposition home or self-care (01) | LOC: SL 14:48 | PROVIDERS: PCP Internal Medicine; Visit Provider Nurse Practitioner Family | DX: Z46.89 Encounter for fitting and adjustment of other specified devices (principal) ==